=== PATIENT | male | born 1950 | race Caucasian/White ===

== ENCOUNTER 2020-02-21 15:20 | Inpatient (IN) | payer MEDICARE, BC ==
[~2020-02-21] VITALS: Ht 185.4 cm; Wt 81.8 kg
[2020-02-21 15:59] LABS: BASOPHILS % (AUTO) 0.3 % (0-1); EOSINOPHILS % (AUTO) 0.1 % (0-6); HEMATOCRIT 56.1 % (35.0-45.0); LYMPHOCYTES # (AUTO) 1.5 X10'3 (1.1-4.8); LYMPHOCYTES % (AUTO) 13.5 % (21-51); MEAN CORPUSCULAR HEMOGLOBIN 36.1 PG (27.0-31.0); MEAN CORPUSCULAR HGB CONC 34.4 g/dL (33.0-36.5); MEAN CORPUSCULAR VOLUME 104.9 FL (78-98); MEAN PLATELET VOLUME 8.1 FL (7.4-10.4); MONOCYTES # (AUTO) 1.1 X10'3 (0-0.9); MONOCYTES % (AUTO) 9.8 % (2-12); NEUTROPHILS # (AUTO) 8.5 X10'3 (1.8-7.7); NEUTROPHILS % (AUTO) 76.3 % (42-75); PLATELET COUNT 222 X10'3 (140-440); RED BLOOD COUNT 5.35 X10'6 (4.20-5.60); RED CELL DISTRIBUTION WIDTH 14.4 % (11.5-14.5); WHITE BLOOD COUNT 11.2 X10'3 (4.5-11.0)
[2020-02-21 16:02] LABS: HEMOGLOBIN 19.3 g/dl (12.0-16.0)
[2020-02-21 16:18] LABS: ALANINE AMINOTRANSFERASE 24 U/L (12-78); ALBUMIN 3.5 G/DL (3.4-5.0); ALBUMIN/GLOBULIN RATIO 0.9 (1.1-1.5); ALKALINE PHOSPHATASE 106 IU/L (46-116); ANION GAP 8 (8-16); ASPARTATE AMINO TRANSFERASE 28 U/L (10-37); BILIRUBIN,TOTAL 1.1 MG/DL (0.1-1.0); BLOOD UREA NITROGEN 9 MG/DL (7-18); CALCIUM 8.8 MG/DL (8.5-10.1); CHLORIDE 102 MMOL/L (99-107); CREATININE 1.12 MG/DL (0.40-0.90); GLUCOSE 116 MG/DL (70-104); POTASSIUM 4.4 MMOL/L (3.5-5.1); SODIUM 139 MMOL/L (135-145); TOTAL CARBON DIOXIDE 28.9 MMOL/L (24-32); TOTAL PROTEIN 7.4 G/DL (6.4-8.2); eGFR 48 ML/MIN
[2020-02-21 16:23] LABS: MAGNESIUM 2.1 MG/DL (1.5-2.4)
[2020-02-21] MEDS ORDERED: NO HOME MEDS (17:01)
[2020-02-21] MEDS ORDERED: LORazepam 2 mg/ml vial IV PRN (17:20)
[2020-02-21] MEDS ORDERED: potassium CL 10mEq/100ml bag 100 ML IV PRN ×2 (17:20)
[2020-02-21] MEDS ORDERED: ondansetron/PF 4mg/2ml inj IV PRN (17:20)
[2020-02-21] MEDS ORDERED: aminophylline 250mg/10ml inj. IV PRN (17:20)
[2020-02-21] MEDS ORDERED: morphine 2 MG/ML inj. syringe IV PRN (17:20)
[2020-02-21] MEDS ORDERED: magnesium 4gm in 100ml NS 100 ML IV PRN (17:20)
[2020-02-21] MEDS ORDERED: potassium Cl 20 mEq SR tablet PO PRN ×2 (17:20)
[2020-02-21] MEDS ORDERED: regadenoson 0.4mg/5ml syringe IV PRN (17:20)
[2020-02-21] MEDS ORDERED: acetaminophen 325mg tablet PO PRN ×2 (17:20)
[2020-02-21] MEDS ORDERED: magnesium Cl slow-release 64mg tablet PO PRN (17:20)
[2020-02-21] MEDS ORDERED: nitroGLYCERIN 0.4mg SUBLingual tab SL PRN (17:20)
[2020-02-21] MEDS ORDERED: docusate sod 100mg capsule PO PRN (17:20)
[2020-02-21] MEDS ORDERED: HYDROcodone/acetaminophen 5mg/325mg tablet PO PRN (17:20)
[2020-02-21] MEDS ORDERED: metoprolol tartrate 1mg/ml inj IV PRN (17:20)
[2020-02-21] MEDS ORDERED: magnesium 2GM in 50ml NS 50 ML IV PRN (17:20)
[2020-02-21] MEDS ORDERED: LORazepam 1 MG tablet PO PRN (17:20)
[2020-02-21] MEDS: normal saline 1000ml 1,000 ML IV SCH (17:46)
[2020-02-21 19:00] VITALS: BP 124/86
[2020-02-21] MEDS: heparin, porcine 5000 units/ml vial SQ SCH (19:48)
[2020-02-21] MEDS: K and/or MAG REPLACEMENT MC SCH (19:48)
[2020-02-21] MEDS: albuterol 2.5 MG/3 ML nebule NEB SCH (20:01)
[2020-02-21 22:00] VITALS: BP 101/60
[2020-02-22] VITALS (14 sets, daily range): BP systolic 92–136; BP diastolic 48–80
[2020-02-22] MEDS: albuterol 2.5 MG/3 ML nebule NEB SCH ×3 (02:19→14:27)
[2020-02-22 03:47] LABS: BASOPHILS # (AUTO) 0.1 X10'3 (0-0.2); BASOPHILS % (AUTO) 0.8 % (0-1); EOSINOPHILS # (AUTO) 0.1 X10'3 (0-0.9); EOSINOPHILS % (AUTO) 0.9 % (0-6); HEMATOCRIT 48.8 % (42.0-52.0); HEMOGLOBIN 16.7 g/dl (14.0-17.9); LYMPHOCYTES # (AUTO) 2.4 X10'3 (1.1-4.8); LYMPHOCYTES % (AUTO) 28.3 % (21-51); MEAN CORPUSCULAR HEMOGLOBIN 35.5 PG (27.0-31.0); MEAN CORPUSCULAR HGB CONC 34.2 g/dL (33.0-36.5); MEAN CORPUSCULAR VOLUME 103.7 FL (78-98); MEAN PLATELET VOLUME 8.3 FL (7.4-10.4); MONOCYTES # (AUTO) 0.8 X10'3 (0-0.9); MONOCYTES % (AUTO) 9.5 % (2-12); NEUTROPHILS # (AUTO) 5.1 X10'3 (1.8-7.7); NEUTROPHILS % (AUTO) 60.5 % (42-75); PLATELET COUNT 180 X10'3 (140-440); RED BLOOD COUNT 4.71 X10'6 (4.70-6.10); RED CELL DISTRIBUTION WIDTH 14.5 % (11.5-14.5); WHITE BLOOD COUNT 8.4 X10'3 (4.5-11.0)
[2020-02-22] MEDS: normal saline 1000ml 1,000 ML IV SCH ×2 (03:55→13:19)
[2020-02-22 04:01] LABS: CHOL/HDL RATIO 2.8 (0.00-4.99); CHOLESTEROL 142 MG/DL (0-200); HDL CHOLESTEROL 50 MG/DL (35-60); LDL CHOLESTEROL 77 MG/DL (50-100); TRIGLYCERIDES 71 MG/DL (20-135)
--- NOTE | 2020-02-22 06:15 | NUR ---
Problems reprioritized. Patient report given, questions answered & plan of care reviewed with MALORIE Walker.
--- NOTE | 2020-02-22 06:44 | NUR ---
Patient in room PCU 3018. I have received report from Rose ESPANA and had the opportunity to ask questions and assume patient care. Pt. resting comfortably in no distress.
[2020-02-22] MEDS: heparin, porcine 5000 units/ml vial SQ SCH (07:35)
[2020-02-22] MEDS ORDERED: nicotine 14mg patch - 24hr TD SCH (08:00)
[2020-02-22] MEDS: K and/or MAG REPLACEMENT MC SCH (08:00)
[2020-02-22 09:26] LABS: ALANINE AMINOTRANSFERASE 19 U/L (12-78); ALBUMIN 2.9 G/DL (3.4-5.0); ALBUMIN/GLOBULIN RATIO 0.9 (1.1-1.5); ALKALINE PHOSPHATASE 81 IU/L (46-116); ANION GAP 12 (8-16); ASPARTATE AMINO TRANSFERASE 29 U/L (10-37); BLOOD UREA NITROGEN 9 MG/DL (7-18); BUN/CREATININE RATIO 9.6 (5.4-32.0); CALCIUM 8.3 MG/DL (8.5-10.1); CHLORIDE 104 MMOL/L (99-107); CREATININE 0.94 MG/DL (0.60-1.10); GLUCOSE 94 MG/DL (70-104); SODIUM 138 MMOL/L (135-145); TOTAL PROTEIN 6.1 G/DL (6.4-8.2); eGFR 79 ML/MIN
--- NOTE | 2020-02-22 11:17 | NUR ---
PAGER ID: [phone] MESSAGE: [phone] Donna Moyer. Pt. back from [facility] and results are up. Denise ESPANA [phone]
--- NOTE | 2020-02-22 11:45 | NUR ---
O2 Sat at rest on room air:95% If below 89%: Recovery O2 Sat at rest on ___LPM:___%:___% via (mask/nasal cannula, etc..) No further documentation is necessary. If O2 Sat did not drop below 89% on room air,ambulate patient on room air. O2 Sat while ambulating on room air:80% Recovery O2 Sat while ambulating on 2 LPM: 95%% No further documentation is necessary. If patient does not drop below 89% while ambulating, he/she does not qualify for home O2.
--- NOTE | 2020-02-22 11:56 | NUR ---
PAGER ID: [phone] MESSAGE: [phone], Ryan Moyer. Oxygen saturation's dropped to 80% with ambulation. Needs home 02 arranged. MARGA aware. Denise ESPANA [id number]
--- NOTE | 2020-02-22 13:17 | NUR ---
Patient was educated regarding a follow up with a primary. Pt. stated, he has yet to establish a physician and plans to do so when he gets home. Explained the importance of doing so and continued smoking cessation. Pt. verbalized understanding.
[2020-02-22] MEDS ORDERED: ALBU8HFA PO (14:55)
== END 2020-02-22 16:38 | disposition home or self-care (01) | DRG 192 ==
LOC: ER 15:21 → EDSEX 15:21 → ED HOLD 17:19 → EDBEDREQ 18:24 → PCU 3S 19:03
PROVIDERS: ADMIT Internal Medicine; ATTEND Internal Medicine
PROC: 4A02XM4 Measurement of Cardiac Total Activity, External Approach (ICD-10-PCS; principal; 2020-02-22)
PROC: 3E073KZ Introduction of Other Diagnostic Substance into Coronary Artery, Percutaneous Approach (ICD-10-PCS; 2020-02-22)
DX: J44.1 Chronic obstructive pulmonary disease with (acute) exacerbation (principal); R07.9 Chest pain, unspecified; D72.829 Elevated white blood cell count, unspecified; E86.0 Dehydration; N18.3 Chronic kidney disease, stage 3 (moderate); Z66 Do not resuscitate; F12.90 Cannabis use, unspecified, uncomplicated; F17.210 Nicotine dependence, cigarettes, uncomplicated; Z88.0 Allergy status to penicillin; Z72.89 Other problems related to lifestyle; Z71.41 Alcohol abuse counseling and surveillance of alcoholic
CPT/HCPCS: 36415; 78452; 80053; 80061; 83605; 83735; 83880; 84145; 84484; 85025; 87040; 87081; 93005; 93017; 93308; 94640; 94760; 97116; 97161; 97530; 99285; A9500; G0378; J0280; J1644; J2785; J7030